=== PATIENT | female | born 1960 | race Caucasian/White ===

== ENCOUNTER 2016-10-23 17:03 | Emergency (ER) | payer MEDICARE ==
[~2016-10-23] VITALS: Ht 160 cm; Wt 65.0 kg
[~2016-10-23 17:03] MED LIST: ATOR40TA16 PO; CLOP75TA PO; DIAZ5 PO; GLIP1TAB49 PO; LOSA50TA PO; MECL-62 PO; METF1000 PO; SITA50 PO
[2016-10-23 17:23] VITALS: BP 212/91; PULSE 78; RESP 12; TEMP 97.8; O2SAT 98
--- NOTE | 2016-10-23 19:34 | PD ---
HPI Chief Complaint: Fall Time Seen by Provider: 19:32 Travel History International Travel<30 days: No Contact w/Intl Traveler<30days: No Traveled to known affect area: No History of Present Illness HPI 56-year-old female presents to the emergency department for evaluation of dizziness, bilateral lower extremity weakness, fall 2. Patient does report a history of vertigo. She was recently changed from her meclizine to Valium. She states that since then, she feels like her legs have been weaker and her dizziness has worsened. Patient does report a history of vertigo since 2010. She also reports history CVA, hypertension, hyperlipidemia, diabetes. Patient states that she fell on Friday and hit her head, but denies loss of consciousness. She also fell today around 3:30. She states that her legs gave out. She denies hitting her head today. She denies any syncopal episodes. Patient does state that the weakness in her bilateral lower extremities is chronic. Patient is on Plavix. She denies any chest pain or shortness of breath. PFSH Past Medical History Arthritis: Yes Depression: Yes Cardiovascular Problems: Yes (HTN) High Cholesterol: Yes Cerebrovascular Accident: Yes (CVA-2010) Diabetes: Yes Diminished Hearing: No GERD: Yes Immunizations Current: Yes ?: Not Menopausal: No : 2 Para: 2 Past Surgical History Cardiac Surgery: Yes (cardiac cath 1998) Social History Alcohol Use: No Tobacco Use: No Substance Use: No Allergies-Medications (Allergen,Severity, Reaction): Coded Allergies: No Known Allergies (Unverified , 07/25/16) Reported Meds & Prescriptions Reported Meds & Active Scripts Active Valium (Diazepam) 5 Mg Tab 5 Mg PO ONCE PRN Reported Januvia (Sitagliptin Phosphate) 50 Mg Tab 50 Mg PO DAILY Atorvastatin (Atorvastatin Calcium) 40 Mg Tab 40 Mg PO HS Clopidogrel (Clopidogrel Bisulfate) 75 Mg Tab 75 Mg PO DAILY Meclizine (Meclizine HCl) 25 Mg Tab 25 Mg PO DAILY PRN Losartan (Losartan Potassium) 50 Mg Tab 50 Mg PO DAILY Glipizide ER (Glipizide) 5 Mg Reena 5 Mg PO BID Take with breakfast or first main meal of the day. Metformin (Metformin HCl) 1,000 Mg Tab 1,000 Mg PO BIDPC With meals Review of Systems Except as stated in HPI: all other systems reviewed are Neg Physical Exam Narrative GENERAL: Well-developed well-nourished female patient, ambulatory. Afebrile. SKIN: Warm and dry. HEAD: Normocephalic. Atraumatic. EYES: No scleral icterus. No injection or drainage. NECK: Supple, trachea midline. No JVD or lymphadenopathy. CARDIOVASCULAR: Regular rate and rhythm without murmurs, gallops, or rubs. RESPIRATORY: Breath sounds equal bilaterally. No accessory muscle use. Lungs sounds are clear to auscultation. GASTROINTESTINAL: Abdomen soft, non-tender, nondistended. MUSCULOSKELETAL: No cyanosis, or edema. BACK: Nontender without obvious deformity. No CVA tenderness. Data Data Last Documented VS Vital Signs Date Time Temp Pulse Resp B/P Pulse Ox O2 Delivery O2 Flow Rate FiO2 10/23/16 17:23 97.8 78 12 212/91 98 Room Air Orders Electrocardiogram (10/23/16 19:31) Basic Metabolic Panel (Bmp) (10/23/16 19:31) Complete Blood Count With Diff (10/23/16 19:31) Magnesium (Mg) (10/23/16 19:31) Urinalysis - C+S If Indicated (10/23/16 19:31) Ct Brain W/O Iv Contrast(Rout) (10/23/16 19:31) Meclizine (Antivert) (10/23/16 20:15) Labs Laboratory Tests Test 10/23/16 19:43 White Blood Count 9.8 TH/MM3 Red Blood Count 3.92 MIL/MM3 Hemoglobin 12.0 GM/DL Hematocrit 35.4 % Mean Corpuscular Volume 90.3 FL Mean Corpuscular Hemoglobin 30.6 PG Mean Corpuscular Hemoglobin 33.8 % Concent Red Cell Distribution Width 12.5 % Platelet Count 269 TH/MM3 Mean Platelet Volume 7.7 FL Neutrophils (%) (Auto) 75.8 % Lymphocytes (%) (Auto) 16.3 % Monocytes (%) (Auto) 6.6 % Eosinophils (%) (Auto) 0.7 % Basophils (%) (Auto) 0.6 % Neutrophils # (Auto) 7.4 TH/MM3 Lymphocytes # (Auto) 1.6 TH/MM3 Monocytes # (Auto) 0.6 TH/MM3 Eosinophils # (Auto) 0.1 TH/MM3 Basophils # (Auto) 0.1 TH/MM3 CBC Comment DIFF FINAL Differential Comment MDM Medical Decision Making Medical Screen Exam Complete: Yes Emergency Medical Condition: Yes Medical Record Reviewed: Yes Differential Diagnosis Vertigo versus electrolyte abnormality versus intracranial abnormality versus dehydration Narrative Course 56-year-old female presents to the emergency department for evaluation of dizziness, bilateral lower extremity weakness which is chronic for her. She also reports 2 falls. Patient is on Plavix. CT of the brain is ordered and pending. EKG, CBC, BMP, magnesium, UA are ordered and pending. Workup is initiated in triage. Once a medical bed becomes available, patient will be transferred and care assumed by that provider. Esperanza Person Oct 23, 2016 19:34
--- NOTE | 2016-10-23 20:01 | RADRPT ---
EXAM DATE/TIME: 10/23/2016 19:51 [facility] COMPARISON: No previous studies available for comparison. INDICATIONS : Dizzy with leg weakness today; history of stroke. RADIATION DOSE: 34.14 CTDIvol (mGy) MEDICAL HISTORY : Cerebrovascular disease. Cardiovascular disease SURGICAL HISTORY : None. ENCOUNTER: Initial ACUITY: 1 day PAIN SCALE: 0/10 LOCATION: cranial TECHNIQUE: Multiple contiguous axial images were obtained of the head. Using automated exposure control and adj ustment of the mA and/or kV according to patient size, radiation dose was kept as low as reasonably a chievable to obtain optimal diagnostic quality images. FINDINGS: CEREBRUM: The ventricles are normal for age. No evidence of midline shift, mass lesion, hemorrhage or acute in farction. There are old lacunar infarction at the right basal ganglia. No extra-axial fluid collectio ns are seen. POSTERIOR FOSSA: The cerebellum and brainstem are intact. The 4th ventricle is midline. The cerebellopontine angle i s unremarkable. EXTRACRANIAL: The visualized portion of the orbits is intact. SKULL: The calvaria is intact. No evidence of skull fracture. CONCLUSION: 1. No acute abnormality is seen. 2. Old lacunar infarcts. Kapil Engle MD on October 23, 2016 at 19:58 Board Certified Radiologist. This report was verified electronically.
[2016-10-23 20:05] LABS: AUTOMATED NEUTROPHIL # 7.4 TH/MM3 (1.8-7.7); BASOPHIL # 0.1 TH/MM3 (0-0.2); BASOPHIL % 0.6 % (0.0-2.0); EOSINOPHIL # 0.1 TH/MM3 (0-0.4); EOSINOPHIL % 0.7 % (0.0-4.0); HEMATOCRIT 35.4 % (35.0-46.0); HEMO FLAGS DIFF FINAL; LYMPH % 16.3 % (9.0-44.0); LYMPHOCYTE # 1.6 TH/MM3 (1.0-4.8); MEAN CELL VOLUME 90.3 FL (80.0-100.0); MEAN CORPUSCULAR HEMOGLOBIN 30.6 PG (27.0-34.0); MEAN CORPUSCULAR HGB CONC 33.8 % (32.0-36.0); MONO % 6.6 % (0.0-8.0); NEUT % 75.8 % (16.0-70.0); PLATELET COUNT 269 TH/MM3 (150-450); RED BLOOD COUNT 3.92 MIL/MM3 (4.00-5.30); RED CELL DISTRIBUTION WIDTH 12.5 % (11.6-17.2); WHITE BLOOD COUNT 9.8 TH/MM3 (4.0-11.0)
[2016-10-23] MEDS ORDERED: MECLIZINE HCL 25 MG TAB PO ONE (20:15)
[2016-10-23 20:36] LABS: BACTERIA, URINE RARE /hpf; BLOOD, URINE NEG (NEG); COMMENT (UR) CULT NOT INDICATED; CULTURE IF INDICATED CULT NOT INDICATED; GLUCOSE,URINE 1000 mg/dL (NEG); HYALINE CAST, URINE 2 /lpf (RARE); KETONE, URINE NEG (NEG); MUCUS URINE FEW /lpf (OCC); NITRITE,URINE NEG (NEG); PH, URINE 5.5 (5.0-8.5); SQUAMOUS EPITHELIAL CELL URINE 2 /hpf (0-5); URINE COLOR LIGHT-YELLOW (YELLW/STRAW)
[2016-10-23 21:17] LABS: BICARBONATE 25.3 MEQ/L (21.0-32.0); MAGNESIUM 2.1 MG/DL (1.5-2.5); POTASSIUM 4.1 MEQ/L (3.5-5.1)
--- NOTE | 2016-10-23 21:28 | RADRPT ---
EXAM DATE/TIME: 10/23/2016 21:22 [facility] COMPARISON: No previous studies available for comparison. INDICATIONS : Left ankle pain after fall. MEDICAL HISTORY : None. SURGICAL HISTORY : None. ENCOUNTER: Initial ACUITY: 1 day PAIN SCORE: 09/17 LOCATION: Left ankle. FINDINGS: Three view exam was performed of the left ankle. The bony structures are in normal alignment. No ev idence of fracture, dislocation, or soft tissue swelling. The ankle mortise is intact. There is spu rring at the plantar aponeurosis attachment site and to a much lesser degree Achilles attachment site at the posterior calcaneus. The bones appear osteopenic. No radiopaque foreign bodies are seen. CONCLUSION: No acute disease. Kaipl Engle MD on October 23, 2016 at 21:26 Board Certified Radiologist. This report was verified electronically.
--- NOTE | 2016-10-23 21:28 | PD ---
Data Data Last Documented VS Vital Signs Date Time Temp Pulse Resp B/P Pulse Ox O2 Delivery O2 Flow Rate FiO2 10/23/16 17:23 97.8 78 12 212/91 98 Room Air Orders Electrocardiogram (10/23/16 19:31) Basic Metabolic Panel (Bmp) (10/23/16 19:31) Complete Blood Count With Diff (10/23/16 19:31) Magnesium (Mg) (10/23/16 19:31) Urinalysis - C+S If Indicated (10/23/16 19:31) Ct Brain W/O Iv Contrast(Rout) (10/23/16 19:31) Meclizine (Antivert) (10/23/16 20:15) Ankle, Complete (Too5mfj) (10/23/16 ) Sodium Chlor 0.9% 1000 Ml Inj (Ns 1000 M (10/23/16 21:30) Insulin Human Regular Inj (Novolin R Inj (10/23/16 21:30) Labs Laboratory Tests Test 10/23/16 10/23/16 19:43 19:54 White Blood Count 9.8 TH/MM3 Red Blood Count 3.92 MIL/MM3 Hemoglobin 12.0 GM/DL Hematocrit 35.4 % Mean Corpuscular Volume 90.3 FL Mean Corpuscular Hemoglobin 30.6 PG Mean Corpuscular Hemoglobin 33.8 % Concent Red Cell Distribution Width 12.5 % Platelet Count 269 TH/MM3 Mean Platelet Volume 7.7 FL Neutrophils (%) (Auto) 75.8 % Lymphocytes (%) (Auto) 16.3 % Monocytes (%) (Auto) 6.6 % Eosinophils (%) (Auto) 0.7 % Basophils (%) (Auto) 0.6 % Neutrophils # (Auto) 7.4 TH/MM3 Lymphocytes # (Auto) 1.6 TH/MM3 Monocytes # (Auto) 0.6 TH/MM3 Eosinophils # (Auto) 0.1 TH/MM3 Basophils # (Auto) 0.1 TH/MM3 CBC Comment DIFF FINAL Differential Comment Sodium Level 131 MEQ/L Potassium Level 4.1 MEQ/L Chloride Level 98 MEQ/L Carbon Dioxide Level 25.3 MEQ/L Anion Gap 8 MEQ/L Blood Urea Nitrogen 34 MG/DL Creatinine 1.52 MG/DL Estimat Glomerular Filtration 35 ML/MIN Rate Random Glucose 420 MG/DL Calcium Level 8.9 MG/DL Magnesium Level 2.1 MG/DL Urine Color LIGHT-YELLOW Urine Turbidity CLEAR Urine pH 5.5 Urine Specific [place] 1.008 Urine Protein 30 mg/dL Urine Glucose (UA) 1000 mg/dL Urine Ketones NEG mg/dL Urine Occult Blood NEG Urine Nitrite NEG Urine Bilirubin NEG Urine Urobilinogen LESS THAN 2.0 MG/DL Urine Leukocyte Esterase SMALL Urine RBC 1 /hpf Urine WBC 6 /hpf Urine Squamous Epithelial 2 /hpf Cells Urine Bacteria RARE /hpf Urine Hyaline Casts 2 /lpf Urine Mucus FEW /lpf Microscopic Urinalysis Comment CULT NOT INDICATED MDM Supervised Visit with NOEL: Yes Narrative Course I, Dr. Irvin, have reviewed the advance practice practitioner's documentation and am in agreement, met with the patient face to face, made the diagnosis, and the medical decision making was done by me. See her note for further details. The patient was initially evaluated in triage and brought back to a medical bed once it became available. Briefly this is a 56-year-old female with history of diabetes, chronic persistent vertigo, on Plavix, here for evaluation after a fall. The patient reports that she fell after standing up from going to the restroom at around 2:30 PM today. She fell to the ground. She denies head injury or LOC. She is complaining of some left ankle pain after the fall, no other injuries. Patient complains of chronic lower extremity weakness, and according to the family this is her second fall within the last week. The patient reports that she used to be on meclizine for her vertigo, however this was switched to diazepam because of her renal function. Physical exam shows a small superficial abrasion to her left lateral ankle. Left ankle is without obvious deformity, with normal range of motion, with mild lateral tenderness. Patient is awake and alert. No focal neurologic deficits. No midline vertebral step-off or tenderness. Normal motor strength and range of motion in all 4 extremities. Initial vital signs show heart rate 78, blood pressure 212/91, pulse ox 90% on room air, oral temp of 97.8F. CBC is unremarkable. BMP is remarkable for sodium 131, BUN 34, creatinine 1.5, GFR 35, renal function is similar to when she was here in July 2016. Random glucose is 420. Bicarbonate is 25.3. UA shows 1000 glucose, 30 protein, not suggestive of UTI, negative ketones. The patient is not in DKA. CT head shows no acute abnormality. Old lacunar infarcts. Left ankle x-ray: No acute disease. The patient's metformin was recently discontinued secondary to her renal function. She is on glipizide and Januvia. Again she is not in DKA. She will be given normal saline IV as well as cutaneous insulin. Repeat fingerstick after the patient received subcutaneous insulin and IV fluids is 250s. She is stable for discharge home. She has normal range of motion in bilateral lower extremities. Her daughter will call her pocket operator tomorrow and will make a follow-up appointment for her with her primary care physician this week. Patient was informed on when to return to the emergency department. She verbalizes understanding and agreement with plan. Diagnosis Primary Impression: Hyperglycemia Additional Impression: Fall Qualified Code: W19.XXXA - Fall, initial encounter Referrals: Web Services Architect 1 day Primary Care Physician 3 days Additional Instruction: Follow-up with your primary care physician and your pocket operator this week. Return to the emergency department for worsening symptoms or any other concerns. Disposition: DISCHARGE HOME Condition: Stable Lazaro Irvin MD Oct 23, 2016 21:28
[2016-10-23] MEDS ORDERED: SODIUM CHLOR 0.9% 1000 ML INJ 1,000 ML IV ONE (21:30)
[2016-10-23] MEDS ORDERED: INSULIN HUMAN REGULAR 1,000 UNITS/10 ML VIAL SQ ONE (21:30)
[2016-10-24 00:47] VITALS: BP 143/80
--- NOTE | 2016-10-24 08:41 | EKG ---
Date Performed: 10/23/2016 Time Performed: 19:37:10 PTAGE: 56 years EKG: Sinus rhythm POSSIBLE INFERIOR MYOCARDIAL INFARCTION BORDERLINE ECG PREVIOUS TRACING : 07/25/2016 21.21 DOCTOR: Vikram Joyce Interpretating Date/Time 10/24/2016 08:38:13
== END 2016-10-24 00:44 | disposition home or self-care (01) ==
LOC: NEPB 17:03
DX: R42 Dizziness and giddiness (principal); R73.9 Hyperglycemia, unspecified; R53.1 Weakness; M25.572 Pain in left ankle and joints of left foot; R94.31 Abnormal electrocardiogram [ECG] [EKG]; I10 Essential (primary) hypertension; E78.00 Pure hypercholesterolemia, unspecified; Z86.73 Personal history of transient ischemic attack (TIA), and cerebral infarction without residual deficits; E11.9 Type 2 diabetes mellitus without complications; K21.9 Gastro-esophageal reflux disease without esophagitis; Z79.02 Long term (current) use of antithrombotics/antiplatelets; W19.XXXA Unspecified fall, initial encounter; Y99.8 Other external cause status
CPT/HCPCS: 70450; 73610; 80048; 81001; 83735; 85025; 93005; 96372; 99284; J1815; J7030

== ENCOUNTER 2017-05-20 10:50 | Emergency (ER) | payer MEDICARE ==
[~2017-05-20] VITALS: Ht 160 cm; Wt 67.0 kg
[2017-05-20 10:52] VITALS: BP 163/120; PULSE 88; RESP 18; TEMP 98.3; O2SAT 97
[2017-05-20] MEDS ORDERED: DULA10IN SQ (11:25)
--- NOTE | 2017-05-20 11:44 | PD ---
HPI Chief Complaint: Diabetic Time Seen by Provider: 11:28 Travel History International Travel<30 days: No Contact w/Intl Traveler<30days: No Traveled to known affect area: No History of Present Illness HPI 57-year-old female came to the emergency room with history of multiple complaints including high blood glucose, dizziness, double vision, vomiting 3 all started in past 2 days. Patient is here with her [id number] who is giving a lot of information as well. Patient has had a CVA in the past which has resulted in persistent dizziness and paroxysmal diplopia. And hence the dizziness and the diplopia is not new as per the patient as well as the daughter -in-law. The main concern was that high blood sugar which between the past 2 days has been between 3-400. Patient filled her glipizide prescription 2 weeks ago and the pill seems to be from a different limo driver since its in a different color. They think that that might have something to do with the high blood sugar. Also she has vomited 3 times and the last vomitus was bilious. No history of abdominal pain. Patient is not nauseous and the vomiting happens only after she eats or drinks something. Patient does not appear to be in significant distress. Vital signs are stable. [facility] Past Medical History Narrative Medical List of her past medical, surgical, social and family history is reviewed from the nursing note. Arthritis: Yes Depression: Yes Cardiovascular Problems: Yes High Cholesterol: Yes Cerebrovascular Accident: Yes (HTN) Diabetes: Yes Patient Takes Glucophage: Yes Diminished Hearing: No GERD: Yes Immunizations Current: Yes Tetanus Vaccination: < 5 Years Menopausal: No : 2 Para: 2 Past Surgical History Cardiac Surgery: Yes (cardiac cath 1998) Social History Alcohol Use: No Tobacco Use: No Substance Use: No Allergies-Medications (Allergen,Severity, Reaction): Coded Allergies: No Known Allergies (Unverified , 07/25/16) Comments No known drug allergies. Reported Meds & Prescriptions Reported Meds & Active Scripts Active Protonix (Pantoprazole Sodium) 40 Mg Tab 40 Mg PO DAILY Zofran Odt (Ondansetron Odt) 4 Mg Tab 4 Mg SL Q6HR PRN Reported Trulicity Inj (Dulaglutide Inj) 0.75 Mg/0.5 Ml Pen 0.75 Mg SQ Q7D Atorvastatin (Atorvastatin Calcium) 40 Mg Tab 40 Mg PO HS Clopidogrel (Clopidogrel Bisulfate) 75 Mg Tab 75 Mg PO DAILY Losartan (Losartan Potassium) 50 Mg Tab 50 Mg PO DAILY Glipizide ER (Glipizide) 5 Mg Reena 5 Mg PO BID Take with breakfast or first main meal of the day. Narrative Medication List of her home medications reviewed from the nursing note. Review of Systems Except as stated in HPI: all other systems reviewed are Neg Physical Exam Narrative GENERAL: Awake, alert, no obvious distress SKIN: Focused skin assessment warm/dry. HEAD: Atraumatic. Normocephalic. EYES: Pupils equal and round. No scleral icterus. No injection or drainage. ENT: No nasal bleeding or discharge. Mucous membranes pink and moist. NECK: Trachea midline. No JVD. CARDIOVASCULAR: Regular rate and rhythm. No murmur appreciated. RESPIRATORY: No accessory muscle use. Clear to auscultation. Breath sounds equal bilaterally. GASTROINTESTINAL: Abdomen soft, non-tender, nondistended. Hepatic and splenic margins not palpable. MUSCULOSKELETAL: No obvious deformities. No clubbing. No cyanosis. No edema. NEUROLOGICAL: Awake and alert. No obvious cranial nerve deficits. Motor grossly within normal limits. Normal speech. PSYCHIATRIC: Appropriate mood and affect; insight and judgment normal. Data Data Last Documented VS Orders Orders Electrocardiogram (05/20/17 11:54) Basic Metabolic Panel (Bmp) (05/20/17 11:54) Ckmb (Isoenzyme) Profile (05/20/17 11:54) Complete Blood Count With Diff (05/20/17 11:54) Magnesium (Mg) (05/20/17 11:54) Prothrombin Time / Inr (Pt) (05/20/17 11:54) Act Partial Throm Time (Ptt) (05/20/17 11:54) Troponin I (05/20/17 11:54) Lipase (05/20/17 11:54) Chest, Single Ap (05/20/17 11:54) Ecg Monitoring (05/20/17 11:54) Bilateral Bp Monitoring (05/20/17 11:54) Iv Access Insert/Monitor (05/20/17 11:54) Oximetry (05/20/17 11:54) Oxygen Administration (05/20/17 11:54) Sodium Chloride 0.9% Flush (Ns Flush) (05/20/17 12:00) Sodium Chlorid 0.9% 500 Ml Inj (Ns 500 M (05/20/17 12:00) Ct Abd/Pel W/O Iv Contrast (05/20/17 ) Ondansetron Inj (Zofran Inj) (05/20/17 12:00) Sodium Chlorid 0.9% 500 Ml Inj (Ns 500 M (05/20/17 12:45) Ct Brain W/O Iv Contrast(Rout) (05/20/17 ) Blood Glucose (05/20/17 15:35) Labs Laboratory Tests Test 05/20/17 12:00 White Blood Count 8.2 TH/MM3 Red Blood Count 4.01 MIL/MM3 Hemoglobin 12.4 GM/DL Hematocrit 35.6 % Mean Corpuscular Volume 88.8 FL Mean Corpuscular Hemoglobin 30.8 PG Mean Corpuscular Hemoglobin Concent 34.7 % Red Cell Distribution Width 12.7 % Platelet Count 285 TH/MM3 Mean Platelet Volume 7.0 FL Neutrophils (%) (Auto) 74.3 % Lymphocytes (%) (Auto) 17.8 % Monocytes (%) (Auto) 6.7 % Eosinophils (%) (Auto) 0.5 % Basophils (%) (Auto) 0.7 % Neutrophils # (Auto) 6.1 TH/MM3 Lymphocytes # (Auto) 1.5 TH/MM3 Monocytes # (Auto) 0.5 TH/MM3 Eosinophils # (Auto) 0.0 TH/MM3 Basophils # (Auto) 0.1 TH/MM3 CBC Comment DIFF FINAL Differential Comment Prothrombin Time 10.7 SEC Prothromb Time International Ratio 1.0 RATIO Activated Partial Thromboplast Time 23.9 SEC Blood Urea Nitrogen 32 MG/DL Creatinine 1.45 MG/DL Random Glucose 238 MG/DL Calcium Level 9.3 MG/DL Magnesium Level 2.1 MG/DL Sodium Level 136 MEQ/L Potassium Level 4.0 MEQ/L Chloride Level 101 MEQ/L Carbon Dioxide Level 28.1 MEQ/L Anion Gap 7 MEQ/L Estimat Glomerular Filtration Rate 37 ML/MIN Total Creatine Kinase 47 U/L Troponin I LESS THAN 0.02 NG/ML Lipase 210 U/L MDM Medical Decision Making Medical Screen Exam Complete: Yes Emergency Medical Condition: Yes Medical Record Reviewed: Yes Interpretation(s) Twelve-lead EKG was reviewed by me. Normal sinus rhythm, normal axis, nonspecific ST-T wave changes. Heart rate of 78 bpm. Differential Diagnosis Small bowel obstruction, dehydration, electrolyte abnormalities, DKA Narrative Course 12:54 PM blood test results of back and patient shows some dehydration and hyperglycemia. No signs of DKA. Patient has been given total of 1 L of IV fluid bolus. I have ordered a CT of her brain and abdomen and pelvis which is pending. If those test results are within normal limit patient will be discharged home. Procedures EKG Prior to Arrival: No Diagnosis Primary Impression: Hyperglycemia Additional Impressions: Gastritis Qualified Codes: K29.00 - Acute gastritis without bleeding Dehydration Referrals: Primary Care Physician Additional Instructions: Please return to the ER if the condition worsens or any other new concerns. Otherwise follow-up with your primary care in next couple days. Take the medication as per the prescription direction. Med/Other Pt SpecificInfo: Prescription(s) given Scripts Pantoprazole (Protonix) 40 Mg Tab 40 MG PO DAILY for Reflux, #30 TAB 0 Refills Prov: Ines Joyner MD 05/20/17 Ondansetron Odt (Zofran Odt) 4 Mg Tab 4 MG SL Q6HR Y for Nausea/Vomiting, #15 TAB 0 Refills Prov: Ines Joyner MD 05/20/17 Disposition: 01 DISCHARGE HOME Condition: Stable Ines Joyner MD May 20, 2017 11:44
[2017-05-20 11:45] VITALS: O2SAT 99
[2017-05-20] MEDS ORDERED: SODIUM CHLORID 0.9% 500 ML INJ 500 ML IV ONE ×2 (12:00→12:45)
[2017-05-20] MEDS ORDERED: SODIUM CHLORIDE 0.9% FLUSH 10 ML FLUSH IVF PRN (12:00)
[2017-05-20] MEDS ORDERED: ONDANSETRON HCL 4 MG/2 ML VIAL IV PUSH ONE (12:00)
[2017-05-20 12:15] LABS: AUTOMATED NEUTROPHIL # 6.1 TH/MM3 (1.8-7.7); BASOPHIL # 0.1 TH/MM3 (0-0.2); BASOPHIL % 0.7 % (0.0-2.0); EOSINOPHIL % 0.5 % (0.0-4.0); HEMATOCRIT 35.6 % (35.0-46.0); HEMO FLAGS DIFF FINAL; LYMPH % 17.8 % (9.0-44.0); LYMPHOCYTE # 1.5 TH/MM3 (1.0-4.8); MEAN CELL VOLUME 88.8 FL (80.0-100.0); MEAN CORPUSCULAR HEMOGLOBIN 30.8 PG (27.0-34.0); MEAN CORPUSCULAR HGB CONC 34.7 % (32.0-36.0); MONO % 6.7 % (0.0-8.0); NEUT % 74.3 % (16.0-70.0); PLATELET COUNT 285 TH/MM3 (150-450); RED BLOOD COUNT 4.01 MIL/MM3 (4.00-5.30); RED CELL DISTRIBUTION WIDTH 12.7 % (11.6-17.2); WHITE BLOOD COUNT 8.2 TH/MM3 (4.0-11.0)
[2017-05-20 12:22] LABS: APTT (PATIENT) 23.9 SEC (24.3-30.1); PROTHROMBIN TIME - PATIENT 10.7 SEC (9.8-11.6)
[2017-05-20 12:31] LABS: ANION GAP 7 MEQ/L (5-15); BICARBONATE 28.1 MEQ/L (21.0-32.0); BLOOD UREA NITROGEN 32 MG/DL (7-18); CHLORIDE 101 MEQ/L (98-107); GLOMERULAR FILTRATION RATE 37 ML/MIN (>89); MAGNESIUM 2.1 MG/DL (1.5-2.5); SODIUM (NA) 136 MEQ/L (136-145)
[2017-05-20 12:49] LABS: CREATINE KINASE 47 U/L (26-192)
--- NOTE | 2017-05-20 12:55 | RADRPT ---
EXAM DATE/TIME: 05/20/2017 12:14 [facility] COMPARISON: No previous studies available for comparison. INDICATIONS : Vomiting, dizzy, Abdomen pain ORAL CONTRAST: No oral contrast ingested. RADIATION DOSE: 9.96 CTDIvol (mGy) MEDICAL HISTORY : Hypertension. Diabetes SURGICAL HISTORY : Cariac cath ENCOUNTER: Initial ACUITY: 1 day PAIN SCALE: 6/10 LOCATION: Abdomen TECHNIQUE: Volumetric scanning of the abdomen and pelvis was performed. Using automated exposure control and adjustment of the mA and/or kV according to patient size, radiation dose was kept as low as reasonably achievable to obtain optimal diagnostic quality images. DICOM format image data is av ailable electronically for review and comparison. FINDINGS: LOWER LUNGS: The visualized lower lungs are clear. LIVER: Homogeneous density without mass. Scattered punctate calcifications are noted consistent with granulomatous disease. There is no dilation of the biliary tree. No calcified gallstones. SPLEEN: Normal size without mass. Scattered punctate calcifications are noted consistent with gra nulomatous disease. PANCREAS: Within normal limits. KIDNEYS: Normal in size and shape. There is no mass, stone, or hydronephrosis. ADRENAL GLANDS: Within normal limits. VASCULAR: There is no aortic aneurysm. BOWEL/MESENTERY: The stomach, small bowel, and colon demonstrate no acute abnormality. There is no free intraperitoneal air or fluid. ABDOMINAL WALL: Within normal limits. RETROPERITONEUM: There is no lymphadenopathy. BLADDER: No wall thickening or mass. REPRODUCTIVE: Within normal limits. INGUINAL: There is no lymphadenopathy or hernia. MUSCULOSKELETAL: Mild changes and scoliosis of the lumbar spine are noted. CONCLUSION: 1. No acute intra-abdominal process. 2. Granulomatous changes involving the liver and spleen. 3. Degenerative changes and scoliosis of the lumbar spine. Yair Alexis MD on May 20, 2017 at 12:49 Board Certified Radiologist. This report was verified electronically.
--- NOTE | 2017-05-20 13:12 | RADRPT ---
EXAM DATE/TIME: 05/20/2017 12:45 [facility] COMPARISON: No previous studies available for comparison. INDICATIONS : Chest pain. patient complains of dizziness, nausea and vomiting. MEDICAL HISTORY : Diabetes mellitus type II. Cerebrovascular disease. Cardiovascular disease. SURGICAL HISTORY : None. ENCOUNTER: Initial ACUITY: 2 days PAIN SCORE: 0/10 LOCATION: Bilateral chest FINDINGS: A single view of the chest demonstrates the lungs to be symmetrically aerated without evidence of mas s, infiltrate or effusion. The cardiomediastinal contours are unremarkable. Osseous structures are intact. CONCLUSION: 1. No acute cardiopulmonary disease. Nelson Keller MD on May 20, 2017 at 13:10 Board Certified Radiologist. This report was verified electronically.
--- NOTE | 2017-05-20 14:40 | RADRPT ---
EXAM DATE/TIME: 05/20/2017 13:00 [facility] COMPARISON: CT BRAIN W/O CONTRAST, October 23, 2016, 19:51. INDICATIONS : Cephalgia. Dizziness x 1 week. RADIATION DOSE: 31.24 CTDIvol (mGy) MEDICAL HISTORY : Hypertension. Cardiovascular disease SURGICAL HISTORY : Cardiac cath ENCOUNTER: Initial ACUITY: 4 - 6 days PAIN SCALE: 6/10 LOCATION: cranial TECHNIQUE: Multiple contiguous axial images were obtained of the head. Using automated exposure control and adj ustment of the mA and/or kV according to patient size, radiation dose was kept as low as reasonably a chievable to obtain optimal diagnostic quality images. DICOM format image data is available electro nically for review and comparison. FINDINGS: Old lacunar infarcts are noted within the right basal ganglia and are stable. No acute hemorrhage, a cute infarct, mass effect or extra-axial fluid collections are noted. The ventricles, sulci and ciste rns are normal in size, shape and position for the patient's age. The bone windows are unremarkable. CONCLUSION: 1. Old lacunar infarcts within the right basal ganglia. 2. No acute infarct, acute hemorrhage, mass effect or extra-axial fluid collections. Yair Alexis MD on May 20, 2017 at 13:10 Board Certified Radiologist. This report was verified electronically.
[2017-05-20] MEDS ORDERED: ZOFR4TAB3 SL (15:40)
[2017-05-20] MEDS ORDERED: PROT40TA PO (15:40)
[2017-05-20 16:36] VITALS: BP 141/74
--- NOTE | 2017-05-21 21:54 | EKG ---
Date Performed: 05/20/2017 Time Performed: 13:27:20 PTAGE: 57 years EKG: Sinus rhythm POSSIBLE INFERIOR MYOCARDIAL INFARCTION BORDERLINE ECG PREVIOUS TRACING : 10/23/2016 19.37 Compared to prior tracing no significant change DOCTOR: Tatyana Simpson Interpretating Date/Time 05/21/2017 21:53:05
== END 2017-05-20 16:38 | disposition home or self-care (01) ==
LOC: NEPE 10:50
DX: E11.65 Type 2 diabetes mellitus with hyperglycemia (principal); E86.0 Dehydration; K29.00 Acute gastritis without bleeding; I10 Essential (primary) hypertension; K21.9 Gastro-esophageal reflux disease without esophagitis; Z79.84 Long term (current) use of oral hypoglycemic drugs; R07.9 Chest pain, unspecified
CPT/HCPCS: 70450; 71010; 74176; 80048; 82550; 83690; 83735; 84484; 85025; 85610; 85730; 93005; 96361; 96374; 99285; J2405; J7040